=== PATIENT | female | born 1955 | race Caucasian/White ===

== ENCOUNTER → 2017-07-01 | Outpatient (CLI) | payer BC, OTHER ==
[~2017-07-01] MED LIST: ACETAMINOPHEN650 M5 PO; ALPRAZOLAM 0.0.25 M1 PO; AMARYL4 MG PO; ASPIRIN325; CARVEDILOL12.5 MG PO; CARVEDILOL25 MG PO; COREG; CYCLOBENZAPRINE10 MG PO; DOXYCYCLINE 10100 MG PO; EFFEXOR XR150 MG PO; GLUCOPHAGE500 MG PO; HYDROCODONE-AP1 EA10; HYDROCODONE-AP1 EA10 PO; JANUVIA 50 MG T50 M1; JANUVIA100 MG PO; K-DUR10 MEQ PO; LANOXIN 0.120.125 M1 PO; LANOXIN 0.250.25 MG PO; LASIX 20 MG TAB20 MG PO; LIPITOR20 MG PO; LISINOPRIL10 MG PO; LISINOPRIL20 MG PO; OMEPRAZOLE20 MG PO; POTASSIUM CHLO20 ME1 PO; SEROQUEL XR150 MG PO; STOOL SOFTENER1 EAC1 PO; TRILIPIX135 MG PO; VENLAFAXINE HC150 M1 PO; ZOCOR 20 MG TAB20 M1 PO; [UNRECOGNIZED DRUG - OTHER]
--- NOTE | ~2017-07-01 | 2DMMODE ---
[facility] [address] [place] [address] 2 D/M-MODE ECHOCARDIOGRAM Name: JANEDAVID Room #: REG [facility]#: [id number] Admission: 07/01/17 Attend Phys: Abimael Walton Discharge: Date of : 57 Date of Service: 07/01/17 1507 Report #: [id number] THIS REPORT FOR: //name// APPROVED REPORT Study performed: 07/01/2017 13:05:57 EXAM: Comprehensive 2D, Doppler, and color-flow Echocardiogram Patient Location: Out-Patient Room #: Echo lab Status: routine BSA: 2.08 HR: 80 bpm BP: 106/73 mmHg Other Information Study Quality: Good Indications Cardiomyopathy Hypertension/HDD ICD, HLP. 2D Dimensions RVDd: 38.51 mm LVEF(%): 34.99 (>50%) IVSd: 9.30 (7-11mm) LVOT Diam: 20.94 (18-24mm) LVDd: 59.28 mm PWd: 9.30 (7-11mm) Ascending Ao: 33.92 (22-36mm) LVDs: 49.19 (25-40mm) Aortic Root: 30.49 mm IVC: 19.00 mm Fleming's LVEF: 34.99 % Volumes Left Atrial Volume (Systole) Single Plane 4CH: 96.17 mL Single Plane 2CH: 131.88 mL LA ESV Index: 60.00 mL/m2 Aortic Valve AoV Peak Long.: 1.67 m/s AO Peak Gr.: 11.22 mmHg LVOT Max P.17 mmHg LVOT Max V: 1.02 m/s NARDA Vmax: 2.10 cm2 Mitral Valve E/A Ratio: 0.8 [facility] [employer] [place] [address] 2 D/M-MODE ECHOCARDIOGRAM Name: DAVID JANE Room #: REG [facility]#: [id number] Admission: 07/01/17 Attend Phys: Abimael Walton Discharge: Date of : 57 Date of Service: 07/01/17 1507 Report #: [id number] MV Decel. Time: 209.28 ms MV E Max Long.: 1.19 m/s MV A Long.: 1.47 m/s MV PHT: 60.69 ms IVRT: 152.25 ms Pulmonary Valve PV Peak Long.: 0.98 m/s PV Peak Gr.: 3.86 mmHg Pulmonary Vein P Vein S: 0.44 m/s P Vein A: 0.33 m/s P Vein D: 0.32 m/s P Vein A Dur.: 92.3 msec P Vein S/D Ratio: 1.38 Tricuspid Valve TR Peak Long.: 2.26 m/s RAP Estimate: 5.00 mmHg TR Peak Gr.: 20.50 mmHg PA Pressure: 26.00 mmHg Left Ventricle Left ventricle is dilated. There is normal left ventricular wall thickness. Left ventricular ejection fraction is moderate to severely decreased. LVEF is 30-35%. Grade I - abnormal relaxation pattern. Right Ventricle The right ventricle is normal size. The right ventricular systolic function is normal. Device lead is present in the right ventricle. Atria Left atrium is dilated. Right atrium is dilated. Device lead is present in the right atrium. Aortic Valve The aortic valve is normal in structure. Aortic valve is calcified. Trace aortic regurgitation. There is no aortic valvular stenosis. Mitral Valve The mitral valve is normal in structure. Mitral valve leaflets are calcified. Mitral valve repair with a [address] Mild to moderate mitral regurgitation. No evidence of mitral valve stenosis. Tricuspid Valve The tricuspid valve is normal in structure. There is no tricuspid [address] [address] 2 D/M-MODE ECHOCARDIOGRAM Name: DAVID JANE Room #: REG [facility]#: [id number] Admission: 07/01/17 Attend Phys: Abimael Walton Discharge: Date of : 57 Date of Service: 07/01/17 1507 Report #: [id number] valve stenosis. Trace tricuspid regurgitation. Pulmonic Valve The pulmonary valve is normal in structure. Trace pulmonic regurgitation. Great Vessels The aortic root is normal in size. IVC is normal in size and collapses >50% with inspiration. Pericardium There is no pericardial effusion. <Conclusion> Left ventricle is dilated. Left ventricular ejection fraction is moderate to severely decreased. LVEF is 30-35%. The right ventricle is normal size. Device lead is present in the right ventricle. Left atrium is dilated. Right atrium is dilated. Device lead is present in the right atrium. The aortic valve is normal in structure. Aortic valve is calcified. Trace aortic regurgitation. There is no aortic valvular stenosis. The mitral valve is normal in structure. Mitral valve leaflets are calcified. Mild to moderate mitral regurgitation. Mitral valve repair with a [address] The tricuspid valve is normal in structure. Trace tricuspid regurgitation. The pulmonary valve is normal in structure. Trace pulmonic regurgitation. <ELECTRONICALLY SIGNED> By: Abimael Song MD 07/01/17 1507 1507 1507 Abimael Song MD /INF
== END ==
LOC: EDSTATUS 12:27 → CV 12:38
DX: I10 Essential (primary) hypertension (principal); I42.9 Cardiomyopathy, unspecified; I34.0 Nonrheumatic mitral (valve) insufficiency

== ENCOUNTER → 2018-07-19 | Outpatient (CLI) | payer BC, OTHER ==
[~2018-07-19] VITALS: Ht 157.5 cm; Wt 121.6 kg
[~2018-07-19] MED LIST changes: +ENTRESTO 49 MG1 EACH PO; +MOBIC15 MG PO; +MOVANTIK25 MG PO; +MYRBETRIQ25 MG PO; +NORCO 10-325 T1 EACH PO; +SPIRONOLACTONE25 MG PO; +TRIAMCINOLONE 080 G3 TOP; +VOLTAREN GEL 1100 G2 TOP; +ZANTAC 150MG T150 MG PO
--- NOTE | ~2018-07-19 | CATHLAB ---
[facility] [place] [place] [address] INVASIVE PROCEDURE REPORT Name: DAVID JANE Room #: REG [facility]#: [id number] Admission: 07/19/18 Attend Phys: Abimael Walton Discharge: Date of : 57 Date of Service: 07/22/18 1314 Report #: [id number] THIS REPORT FOR: //name// APPROVED REPORT Study performed: 07/19/2018 14:16:32 Patient Status: Out-Patient Room #: Event Personnel: Abimael Song Motor Grader Rough Grade, Nuria Albert, Rena Allen RTR, Isidra Cheng Wes RN, Tip Harkins RN Resident Athletic Trainer Exam: Generator Change for a Bi-Ventricular Permanent Pacemaker The patient is a 62 year-old female with a history of . Conscious Sedation Start time: 14:40 End Time: 16:10 Versed 3 mg Implanted Devices: Biotronik Itrevia 7 HF-7; Ref. [id number]; SN: [id number] Explanted Devices: Lumax 540 HFT; SN: [id number] Procedure The patient underwent informed consent. We discussed the details of the procedure including the risks, which include, but not limited to bleeding, infection, vascular damage, cardiac perforation, and pneumothorax. She understood these risks and was willing to proceed. As such, she was brought to the EP/Cardiac Catheterization laboratory in a fasting and sedated state and prepped and draped in a The patient underwent MAC anesthesia, with no anesthesia related complications. Generator Change The generator change was then secured using subcutaneous sutures. The subcutaneous pocket was irrigated with ancef antibiotic solution.The lead was attached to the appropriate receptacle on the new pulse generator and setscrews firmly tightened to insure adequate contact and stability. The lead and pulse generator were placed into the subcutaneous pocket. Sharp and sponge counts were confirmed to be correct. At this time the pocket was closed subcutaneously with a 2-0 nonabsorbable suture and the skin was closed with a 3.0 Vicryl subcuticular. The [address] [address] INVASIVE PROCEDURE REPORT Name: JANEDAVID Room #: REG [facility]#: [id number] Admission: 07/19/18 Attend Phys: Abimael Walton Discharge: Date of : 57 Date of Service: 07/22/18 1314 Report #: [id number] operative site was dressed in sterile fashion with steri strips and the patient was transferred to the floor in stable condition. Complications The patient tolerated the procedure well and there were no complications associated with the procedure. Findings Estimated Blood Loss: 10 cc Conclusion 1. Successful BiV generator change Recommendations routine post generator change orders <ELECTRONICALLY SIGNED> By: Abimael Song MD 07/22/18 1314 1314 1314 Abimael Song MD /INF
[2018-07-19 12:51] VITALS: BP 144/84
== END | disposition home or self-care (01) ==
LOC: CATH 10:51
DX: Z45.02 Encounter for adjustment and management of automatic implantable cardiac defibrillator (principal); I11.0 Hypertensive heart disease with heart failure; I50.9 Heart failure, unspecified; I25.2 Old myocardial infarction; I42.9 Cardiomyopathy, unspecified; E78.00 Pure hypercholesterolemia, unspecified; E11.9 Type 2 diabetes mellitus without complications; D64.9 Anemia, unspecified; K21.9 Gastro-esophageal reflux disease without esophagitis; F32.9 Major depressive disorder, single episode, unspecified; F41.9 Anxiety disorder, unspecified; G47.33 Obstructive sleep apnea (adult) (pediatric); M79.7 Fibromyalgia; E66.01 Morbid (severe) obesity due to excess calories; Z82.49 Family history of ischemic heart disease and other diseases of the circulatory system; Z95.5 Presence of coronary angioplasty implant and graft; Z79.01 Long term (current) use of anticoagulants; Z95.2 Presence of prosthetic heart valve; Z98.890 Other specified postprocedural states; Z79.899 Other long term (current) drug therapy; Z90.710 Acquired absence of both cervix and uterus

== ENCOUNTER 2019-02-14 15:56 | Inpatient (IN) | payer BC, OTHER ==
[~2019-02-14] VITALS: Ht 157.5 cm; Wt 103.3 kg
[2019-02-14 20:00] VITALS: BP 104/47; BP 122/48
[2019-02-14 22:00] VITALS: BP 115/82
[2019-02-14] MEDS ORDERED: COREG25 MG PO (23:19)
[2019-02-14] MEDS ORDERED: LASIX 40 MG TAB40 M2 PO (23:21)
[2019-02-14] MEDS ORDERED: ENTRESTO 24 MG1 EACH PO (23:25)
[2019-02-14] MEDS ORDERED: SPIRONOLACTONE25 M1 PO (23:26)
[2019-02-14] MEDS ORDERED: AZATHIOPRINE50 MG PO (23:28)
[2019-02-14] MEDS ORDERED: EFFEXOR XR75 MG PO (23:29)
[2019-02-15] VITALS (9 sets, daily range): BP systolic 87–124; BP diastolic 40–88
[2019-02-15] MEDS ORDERED: OMEPRAZOLE20 M2 PO ×2 (00:43)
--- NOTE | 2019-02-15 03:00 | NUR ---
PT ADMITED AT SHIFT CHANGE, DIRECT ADMIT FROM JORDAN. AFIB HR 130'S - CARDIZEM BOLUS AND DRIP TITIRATED PER EMAR. PT DENIES CP, SOA, DIZZINESS OR CONCERNS. BP LOW 100'S SYSTOLIC ASYPMPTOMATIC. RA- CLEAR/WHEEZY 95% 02. PT STATES SHE USES A WALKER OR CANE BUT IS WEAK AND UNSTEADY AT HOME. ADMISSION COMPLETE, MED RECONCIL DONE. DAYNA SHOEMAKER SAW PATIENT THIS SHIFT. PT USES BRIEFS AT HOME, IN PLACE GOOD OUTPUT . PLAN FOR VQ SCAN AND LABS THIS AM. WILL CONTINUE TO MONITOR AND WITH POC.
[2019-02-15 04:55] LABS: HEMOGLOBIN 10.8 gm/dL (12.0-15.0); MCH 30.2 pg (26.0-34.0); MCV 86.5 fL (80.0-100.0); RBC 3.58 mil/uL (4.20-5.00); RDW 14.7 % (10.5-14.5); WBC 6.5 thou/uL (4.0-11.0)
[2019-02-15 05:04] LABS: CALCIUM 9.7 mg/dL (8.5-10.1); CREATININE 1.5 mg/dL (0.6-1.0)
--- NOTE | 2019-02-15 07:43 | EKG ---
[address] [place] [address] ELECTROCARDIOGRAM REPORT Name: DAVID JANE Room #: 204- ADM IN M.R.#: [id number] ������������������ Admission: 02/14/19 ������������������ Attend Phys: David Krishna MD Discharge: ������������������ Date of : 57 Report #: [id number] ����������������������������������������������������������������� [id number] THIS REPORT FOR: //name// [facility] Test Date: 2019-02-14 Test Time: 19:00:12 Pat Name: DAVID JANE Department: Room: 204 Gender: F Cane Cutter: Abraham PARKER : 1955 Requested By: David Krishna Order Number: [id number] MD: Luis Daniel Hahn Measurements Intervals [place] Rate: 139 P: 0 IL: QRS: 75 QRSD: 103 T: -86 QT: 325 QTc: 494 Interpretive Statements Probable atrial flutter with 2:1 conduction Ventricular premature complex Anteroseptal infarct, old Repol abnrm suggests ischemia, diffuse leads Baseline wander in lead(s) II,III,aVF Compared to ECG 11/22/2010 07:16:02 Ventricular premature complex(es) now present heart rate has increased Electronically Signed On 02-15-2019 7:43:17 CDT by Luis Daniel Hahn [email or web address] ��������������������������������������������� <ELECTRONICALLY SIGNED> ���������������������������������������� By: Luis Daniel Hahn MD, FAC ��������������������������������������������� 02/15/19 0743 99 99 Luis Daniel Hahn MD, [facility] /EPI
--- NOTE | 2019-02-15 15:17 | 2DMMODE ---
[facility] [address] [place] [address] 2 D/M-MODE ECHOCARDIOGRAM Name: JANEDAVID Room #: 204-P ADM IN M.R.#: [id number] ������������� Admission: 02/14/19 ������������� Attend Phys: Mandy Joseph Discharge: ��� ������������� ��� Date of : 57 Date of Service: 02/15/19 1517 �� Report #: [id number] �������� ��������������������������������������������[id number] THIS REPORT FOR: //name// APPROVED REPORT Study performed: 02/15/2019 14:12:56 EXAM: Comprehensive 2D, Doppler, and color-flow Echocardiogram Patient Location: Bedside Room #: 204 Status: routine BSA: 2.03 HR: 113 bpm BP: 100/72 mmHg Rhythm: Atrial Fibrillation Other Information Study Quality: Good Indications Atrial Fibrillation Dyspnea Hx: NISCM, ICD, CHF, MV repair, HTN, HLP. 2D Dimensions RVDd: 40.98 mm IVSd: 9.39 (7-11mm) LVOT Diam: 19.51 (18-24mm) LVDd: 67.00 mm PWd: 11.07 (7-11mm) Ascending Ao: 30.63 (22-36mm) LVDs: 62.07 (25-40mm) Aortic Root: 31.20 mm Volumes Left Atrial Volume (Systole) Single Plane 4CH: 71.35 mL Single Plane 2CH: 97.53 mL LA ESV Index: 44.00 mL/m2 Aortic Valve AoV Peak Long.: 1.30 m/s AO Peak Gr.: 14.97 mmHg LVOT Max P.72 mmHg LVOT Max V: 0.61 m/s NARDA Vmax: 1.40 cm2 Mitral Valve MV Peak Gr.: 12.48 mmHg [facility] [address] [place] [address] 2 D/M-MODE ECHOCARDIOGRAM Name: LUCINDADAVID CHRYSTAL Room #: [facility] IN ..#: [id number] ������������� Admission: 02/14/19 ������������� Attend Phys: Mandy Joseph Discharge: ��� ������������� ��� Date of : 57 Date of Service: 02/15/19 1517 �� Report #: [id number] �������� ��������������������������������������������[id number] MV Mean Gr.: 5.04 mmHg MV Max Long.: 1.75 m/s MV Mean Long.: 1.02 m/s MV VTI: 270.32 mm MV PHT: 48.79 ms MVA (PHT): 4.51 cm2 Pulmonary Valve PV Peak Long.: 0.81 m/s PV Peak Gr.: 2.92 mmHg Tricuspid Valve TR Peak Long.: 2.00 m/s RAP Estimate: 10.00 mmHg TR Peak Gr.: 16.00 mmHg PA Pressure: 26.00 mmHg Left Ventricle Left ventricle is moderate to severely dilated. There is global hypokinesis of the left ventricle. There is normal left ventricular wall thickness. Left ventricular systolic function is severely decreased. LVEF is 20-25%. This study is not technically sufficient to allow evaluation of the LV diastolic function due to atrial fibrillation. Right Ventricle The right ventricle is normal size. Right ventricle is moderately hypokinetic. Device lead is present in the right ventricle. Atria Left atrium is moderately dilated. Right atrium is at the upper limits of normal. Aortic Valve Aortic valve leaflets are mildly calcified Trace to mild aortic regurgitation. Mitral Valve History of mitral valve repair, 32mm ring placement. Mean pressure gradient of 5mmHg. Mild to moderate mitral regurgitation. Tricuspid Valve The tricuspid valve is normal in structure. Mild tricuspid regurgitation. Estimated PAP is 26mmHg. Pulmonic Valve Pulmonic valve is not well visualized. Trace pulmonic regurgitation. [facility] [address] [place] [address] 2 D/M-MODE ECHOCARDIOGRAM Name: LUCINDADAVID CHRYSTAL Room #: 204-P [facility] IN .R.#: [id number] ������������� Admission: 02/14/19 ������������� Attend Phys: Mandy Joseph Discharge: ��� ������������� ��� Date of : 57 Date of Service: 02/15/19 1517 �� Report #: [id number] �������� ��������������������������������������������[id number] Great Vessels The aortic root is normal in size. The ascending aorta is normal in size. IVC is normal in size and collapses <50% with inspiration. Pericardium There is no pericardial effusion. <Conclusion> Left ventricular systolic function is severely decreased. There is global hypokinesis of the left ventricle. LVEF 20-25%. Both atria are moderately dilated. Aortic valve leaflets are mildly calcified, no stenosis. Trace to mild aortic regurgitation. History of mitral valve repair, 32mm ring placement. Mean pressure gradient of 5mmHg. Mild to moderate mitral regurgitation. Mild tricuspid regurgitation. Estimated pulmonary artery pressure of 26mmHg. There is no pericardial effusion. ��������������������������������������������� <ELECTRONICALLY SIGNED> ���������������������������������������� By: Luis Daniel Hahn MD, FACC ��������������������������������������������� 02/15/19 151 16 16 Luis Daniel Hahn MD, FACC /INF
--- NOTE | 2019-02-15 19:02 | NUR ---
ASSESSMENT DOCUMENTED. PT ALERT AND ORIENTED. RECEIVED PRN PAIN MED WITH PARTIAL RELIEF. AFIB ON THE MONITOR. ORDERS NOTED. WILL CONTINUE TO MONITOR.
[2019-02-15 22:03] LABS: URINE BILIRUBIN NEGATIVE (Negative); URINE BLOOD NEGATIVE (Negative); URINE CLARITY SL CLOUDY; URINE COLOR YELLOW; URINE GLUCOSE-RANDOM* NEGATIVE (Negative); URINE KETONES NEGATIVE (Negative); URINE PROTEIN (DIPSTICK) NEGATIVE (Negative); URINE SPECIFIC GRAVITY 1.015 (1.005-1.035); URINE UROBILINOGEN 0.2 E.U./dl (0.2-1.0)
[2019-02-15 22:07] LABS: URINE LEUKOCYTES-REFLEX 1+ (Negative); URINE NITRITE-REFLEX POSITIVE (Negative)
[2019-02-15 22:14] LABS: MUCUS 0-3 Light strn/LPF (None Seen); SQUAMOUS 0-3 Few /LPF (0-3); URINE RBC 3-10 Few /HPF (0-2); URINE WBC-REFLEX 6-15 Few /HPF (0-5)
[2019-02-15 22:15] LABS: HYALINE CASTS 4-10 Moderate /LPF (None Seen)
--- NOTE | 2019-02-16 02:50 | NUR ---
ASSUMED CARE 0. VSS- AFIB 90-110 ON MONITOR. ASSESSMENT CHARTED. PT DENIES SOA, CP, NAUSEA. BP WNL. UP TO COMMOD X1 ASSIST, UA COLLECTED SEE LABS. POTASSIUM AND MAG LOW, GROUNDS/MAINTENANCE SPECIALIST NOTIFIED, ORDERS GIVEN. MAG AND POT REPLACED PER EMAR, PLAN FOR LABS THIS AM. EX URINARY CATH IN PLACE. AM SHIFT REPORTED STRESS TEST WILL BE DONE THURSDAY. WILL CONTINUE TO MONITOR AND WITH POC.
[2019-02-16 04:27] LABS: CALCIUM 9.4 mg/dL (8.5-10.1); CREATININE 1.7 mg/dL (0.6-1.0); MAGNESIUM 1.5 mg/dL (1.8-2.4)
[2019-02-16 04:34] LABS: POTASSIUM 4.2 mmol/L (3.5-5.1)
[2019-02-16 04:45] VITALS: BP 116/56
[2019-02-16 07:16] VITALS: BP 106/51
--- NOTE | 2019-02-16 10:51 | NUR ---
Nutrition: Pt admitted for SOB, seen for high nutrition risk. Hx of CHF, htn. States gradual wt loss of 40 lbs, 15% x5 months, significant. However intake is 50% with 2 boosts/day. Also on diuretics so could be partically fluid related. Requested Ensure BID, will order. Will also provide wt loss education. Otherwise low nutrition risk.
[2019-02-16 11:12] VITALS: BP 110/52
--- NOTE | 2019-02-16 11:20 | H ---
[facility] [place] [address] [place] [address] HISTORY AND PHYSICAL Name: DAVID JANE Room #: 204-P ADM IN M.R.#: [id number] Admission: 02/14/19 ������������������ Attend Phys: Mandy Duff Discharge: ������������������ Date of : 57 Report #: [id number] THIS REPORT FOR: //name// CC: Hernan Krishna DATE OF SERVICE: 02/14/2019 ATTENDING PHYSICIAN: Dr. Guevara. PRIMARY CARE PHYSICIAN: Dr. Hernan Polk. CHIEF COMPLAINT: Shortness of breath and chest heaviness. HISTORY OF PRESENT ILLNESS: The patient is a 63-year-old female, who was sent as a direct admission from [facility] for atrial fibrillation with rapid ventricular response. She does have a history of atrial fibrillation, for which she takes carvedilol. She also has nonischemic cardiomyopathy with an EF of 30%-35% and has a defibrillator in place. She did have a generator exchange last year. Her symptoms started about a week ago when she started having intermittent shortness of breath and some chest heaviness. Her shortness of breath was somewhat worse with exertion, but she would also have episodes when she was at rest. She denies any orthopnea or weight gain. She went to her primary doctor today and her heart rate was fast, so she was sent to the ER to be evaluated. She did have an elevated heart rate and was sent here for further evaluation by her paper rewinder. Her paper rewinder apparently had been notified that her AICD did show an elevated heart rate episode that lasted about 5 hours three days ago. She did recall back around that time and said she was feeling very short of breath that day. She has Lasix as she normally takes p.r.n., but she has been taking it all week because of her symptoms. She denies any history of DVT or PE and does not take any blood thinners including aspirin. In the ER at [facility], she was noted to have an elevated D-dimer, but she was unable to have a CT angio of the chest because of elevated creatinine as well as a CONTRAST ALLERGY. Therefore, she was given a dose of Lovenox, as well as IV Lasix prior to transfer. She has been diuresing well and says her breathing seems to have improved. On arrival here, her initial heart rate was 130 and she has since been started on a Cardizem drip. She normally does not wear oxygen and denies any history of pulmonary disease. PAST MEDICAL HISTORY: Nonischemic cardiomyopathy with an EF of 30%-35%, atrial fibrillation, depression, hypertension, chronic kidney disease stage 3, fibromyalgia, anxiety, myasthenia gravis. PAST SURGICAL HISTORY: AICD placement, mitral valve repair, hysterectomy, bilateral knee replacements, and an AICD generator exchange in 2018. [address] [address] HISTORY AND PHYSICAL Name: DAVID JANE Room #: 204-P ADM IN M.R.#: [id number] Admission: 02/14/19 ������������������ Attend Phys: Mandy Duff Discharge: ������������������ Date of : 57 Report #: [id number] ALLERGIES: SULFA, RASH; IV DYE, UNKNOWN REACTION; BENADRYL, SLEEPS FOR DAYS; and CODEINE, EITHER SLEEPS OR GETS HIGH. HOME MEDICATIONS: Atorvastatin 20 mg at bedtime, carvedilol 25 mg b.i.d., Entresto one tab daily, spironolactone 25 mg daily, [place] one tab q.6 hours p.r.n. pain, Effexor 300 mg daily, Lasix 40 mg daily p.r.n. shortness of air, omeprazole 20 mg at bedtime, Movantik 25 mg daily, and Imuran 50 mg b.i.d. SOCIAL HISTORY: The patient lives at home with her spouse and her son. She denies any tobacco, alcohol or drug use. She does use a walker to ambulate. FAMILY HISTORY: Significant for heart disease in her father and brother. Her father ended up dying from lung cancer. Her mother had renal disease. She also had a sister who required a mitral valve replacement. REVIEW OF SYSTEMS: The patient does describe some chronic right christian erythema that she has had ever since she had her right knee replaced. She had a postoperative knee infection when the wound opened up and ever since then she has had erythema in the right lower extremity with some tenderness. She has been treated with antibiotics a few times, but it did not resolve the redness. The redness has not been increasing and she denies any open wounds or fevers. All other 12-point review of systems was reviewed with the patient, otherwise negative unless stated in the HPI. PHYSICAL EXAMINATION: GENERAL: The patient is an alert, obese female, in no acute distress. VITAL SIGNS: Temperature is 36.9, heart rate 136, respirations 18, blood pressure 104/47, oxygen 96% on 2 liters O2. HEENT: PERRLA. Sclerae is nonicteric. Oral mucosa is pink and moist. NECK: Supple, no JVD noted. CARDIAC: Heart rate is tachycardic and irregular, but no murmurs, rubs or gallops. RESPIRATORY: Breath sounds are clear bilaterally. She is somewhat diminished in the bases. Breathing is nonlabored. ABDOMEN: Obese, soft, nontender, nondistended with positive bowel sounds. VASCULAR: 1+ bilateral ankle edema. Pedal pulses are 2+. SKIN: Intact. She does have some very mild erythema on her right christian, but there are no warmth or open wounds. It is slightly tender to touch. NEUROLOGIC: The patient is alert and oriented x 3. Speech is clear. She is answering questions appropriately and following commands. No focal neuro deficits noted. LABORATORY AND DIAGNOSTIC DATA: Lab work from [facility] showed a WBC of 7.6, hemoglobin 11.6, platelets 229. Sodium 140, potassium 3.6, BUN 38, creatinine [address] [address] HISTORY AND PHYSICAL Name: LUCINDADAVID CHRYSTAL Room #: 204-P [facility] IN M.R.#: [id number] Admission: 02/14/19 ������������������ Attend Phys: Mandy Duff Discharge: ������������������ Date of : 57 Report #: [id number] 1.5, glucose 133. LFTs were within normal limits. Troponins negative. BNP is 5500. D-dimer was 1444. EKG showed an atrial sensed V paced rhythm of 109. Chest x-ray showed no acute findings. There was stable cardiomegaly. ASSESSMENT AND PLAN: 1. Dyspnea. This is likely multifactorial related to atrial fibrillation with rapid ventricular response as well as mild congestive heart failure exacerbation and possible pulmonary embolism. We will continue to work on heart rate control with Cardizem and further tests for pulmonary embolism. She has been given a dose of IV Lasix and has been diuresing well and breathing is improving. Add breathing treatments p.r.n. 2. Atrial fibrillation with rapid ventricular response. It does appear that her defibrillator is not working properly. This will likely need to be interrogated. We will continue with the Cardizem drip and titrate for rate control. Cardiology is consulted. 3. Elevated D-dimer. We do need to rule out pulmonary embolism. Unfortunately, she is unable to have a CT angio of the chest because of a CONTRAST ALLERGY and elevated creatinine. We will order a V/Q scan for morning. She has empirically been started on therapeutic dose of Lovenox, which we will continue. 4. Mild uzhqn-nk-auegomg heart failure. BNP is elevated, but chest x-ray did not show any acute fluid overload. She was given a dose of IV Lasix at [facility]. We will continue her home dose of oral Lasix and continue to monitor fluid status. 5. Hypertension. Blood pressures have been stable. Resume home meds and resume home labs. 6. Chronic kidney disease stage 3. Creatinine was 1.1 in 2012. We do not have any recent labs, but chronic kidney disease stage 3 was mentioned in her [facility] records. We will hold off on any IV fluids since she has congestive heart failure and has been diuresing. We will continue to follow labs. 7. Deep venous thrombosis prophylaxis. Start Lovenox. We will continue to follow the patient closely throughout the hospitalization and make changes based on clinical status. ��������������������������������������������� <ELECTRONICALLY SIGNED> ���������������������������������������� By: SRIKANTH Nuno ��������������������������������������������� 02/16/19 1120 0511 0622 SRIKANTH Nuno /nt
--- NOTE | 2019-02-16 14:41 | NUR ---
met with patient who admits with CHF exacerbation. Patient resides at home with spouse and son. Both work during day. Patient home alone until approx 1430 when son home. All needs on one level in home and 3-4 steps to enter home. Patient has a walker. Discussed dc planning HH/post acute care. Patient with hx of ankle fx then need for post acute care. She was at [facility] for many weeks and reports she would never return. Reviewed facilities and patient reports possibly HH a better fit for her. She is agreeable to any HH agency in area and not alarmed she is a hoarder. She has safe pathway to safety. SP with dc corporate meeting planner regarding HH agencies in area. casemgt following.
[2019-02-16 15:45] VITALS: BP 96/49
--- NOTE | 2019-02-16 17:49 | NUR ---
ASSESSMENT DOCUMENTED. PT DENIED HAVING PAIN OR DISCOMFORT. HAD LOW BP THIS SHIFT. AFIB ON THE MONITOR. UP IN THE CHAIR THIS AM. CARDIAC STRESS TEST IN AM. NPO AFTER MIDNIGHT. WILL CONTINUE TO MONITOR.
[2019-02-16 19:55] VITALS: BP 97/54
--- NOTE | 2019-02-17 03:16 | NUR ---
RECEIVED PT'S CARE ABOUT 1909; PT. REQUESTED TO BE CHANGED; PRIVACY GIVEN; REPORT RECEIVED OUTSIDE OF ROOM; INTRODUCED TO PT. AROUND 1939; PT. EXPLAINED PCP ST. TO TAKE TAKE MUCIMEX FOR HER COUGH; BOTTLE NEXT TO WINDOW; EXPLAINED PER HOSPITAL POLICY WHILE IN THE HOSPITAL, MEDICATION CAN BE PROVIDED DUE TO IT IS NECESSARY TO KNOW WHEN AND HOW MUCH PT'S TAKE; ALSO, FOR SAFETY REASONS, IT IS IMPORTANT PHARMACY APROVED MEDICATION BEFORE IT IS GIVEN TO PT.; PT. UPSET BECAUSE THE MEDICATION'S COST IS HIGHER IN THE HOSPITAL THAN IN REGULAR BASIS; ST. "I CANNOT UNDERSTAND WHY WE PTS CANNOT BRING OUR OWN MEDICATION"; "SOMEBODY SHOULD AVOCATE FOR PTS"; EXPLAINED THOSE ARE REGULAR POLOCIES; ST "NURSES SHOULD AVOCATED FOR PTS, SO THEY DO NOT PAY SO MUCH FOR MEDICATION WHEN THEY CAN TAKE THEIR OWN MEDICATION"; EXPLAINED THAT I CAN REQUESTED ORDER FROM HISTORICAL GUIDE; ASKED IF WISHED TO HAVE IT; ST. "YES"; HISTORICAL GUIDE NOTIFIED; ORDERS RECEIVED; HS MEDICATION GIVEN; AROUND 0; PT REQUESTED PRN PAIN MEDICATION; PRN PAIN MEDICATION GIVEN; PAIN RE-ASSESSMENT PT. SLEEPING; ABLE TO REST MOST OF THE NIGHT WITH EYES CLOSE; BETWEEN 0100 AND 0200 PT'S HR INCREASING UP TO 130'S; NOT SUSTAINED; HR MOSTLY BELOW 100; ASSESSMENT CHARGED; FOLLOWING POC; WILL KEEP MONITORING; WILL PASS ON REPORT.
[2019-02-17 04:45] VITALS: BP 92/60
[2019-02-17 07:28] VITALS: BP 95/43
[2019-02-17 15:38] VITALS: BP 90/66
--- NOTE | 2019-02-17 15:46 | NUR ---
FAXED REFERRAL TO LOCATED WITHIN [facility] SPOKE WITH ADM. DURAN AND THEY CAN ACCEPT PT. AT DISCHARGE. DCP TO FOLLOW.
--- NOTE | 2019-02-17 17:13 | NUR ---
ASSESSMENT DOCUMENTED. PT ALERT AND ORIENTED. RECEIVED PRN PAIN MED WITH PARTIAL RELIEF. HAD STRESS TEST THIS AM. AFIB ON THE MONITOR. NO RESPIRATOEY OR CARDIAC DISTRESS NOTED. WILL CONTINUE TO MONITOR.
[2019-02-17 19:55] VITALS: BP 96/53
[2019-02-17 20:10] VITALS: BP 96/53
--- NOTE | 2019-02-18 03:16 | NUR ---
RECEIVED PT. CARE AROUND 1909; PT. ON BED; WATCHING TV; DURING ASSESSMENT NO C/O PAIN; HS MEDICATION GIVEN; SBP BELOW 100; BASELINE FOR PT; EDUCATED ABOUT NEW HS MEDICATION; O2 SAT 92% ON RA; DURING SLEEPING 02 SATS BETWEEN 89%-90%; 2L O2 APPLIED ON NC; O2 SAT 93%; HR BETWEEN 30'S TO 70'S; NO C/O COMPLAINS DURING ASSESSMENT; WILL KEEP [id number]; ABLE TO REST M0ST OF THE NIGHT WITH EYES CLOSE; ASSESSMENT CHARGED; FOLLOWING POC; WILL PASS ON REPORT.
[2019-02-18 04:45] VITALS: BP 104/38
[2019-02-18 05:30] LABS: CALCIUM 9.8 mg/dL (8.5-10.1); CREATININE 1.7 mg/dL (0.6-1.0); POTASSIUM 4.1 mmol/L (3.5-5.1)
[2019-02-18 07:22] VITALS: BP 100/53
--- NOTE | 2019-02-18 08:23 | EKG ---
[address] [address] ELECTROCARDIOGRAM REPORT Name: LUCINDADAVIDRICKI JARRELL Room #: 204- ADM IN M.R.#: [id number] ������������������ Admission: 02/14/19 ������������������ Attend Phys: Mandy Duff Discharge: ������������������ Date of : 57 Report #: [id number] ����������������������������������������������������������������� [id number] THIS REPORT FOR: //name// [facility] Test Date: 2019-02-17 Test Time: 13:55:18 Pat Name: DAVID JANE Department: Room: 204 Gender: F Entry Level: Yordy LEO : 1955 Requested By: Lisbeth Grimaldo Order Number: [id number] MD: Luis Daniel Hahn Measurements Intervals [place] Rate: 131 P: [place]: QRS: 69 QRSD: 102 T: 260 QT: 305 QTc: 451 Interpretive Statements Atrial fibrillation with a rapid ventricular response Nonspecific intraventricular conduction delay Nonspecific ST and T wave abnormality Compared to ECG 02/14/2019 19:00:12 No significant change was found Electronically Signed On 02-18-2019 8:23:21 CDT by Luis Daniel Hahn [email or web address] ��������������������������������������������� <ELECTRONICALLY SIGNED> ���������������������������������������� By: Luis Daniel Hahn MD, [facility] ��������������������������������������������� 02/18/19 0823 1355 1355 Luis Daniel Hahn MD, [facility] /EPI
--- NOTE | 2019-02-18 08:36 | EKG ---
[place] [address] [facility] [place] [address] ELECTROCARDIOGRAM REPORT Name: LUCINDADAVID JARRELL Room #: 204-P ADM IN M.R.#: [id number] ������������������ Admission: 02/14/19 ������������������ Attend Phys: Mandy Duff Discharge: ������������������ Date of : 57 Report #: [id number] ����������������������������������������������������������������� [id number] THIS REPORT FOR: //name// [facility] Test Date: 2019-02-18 Test Time: 07:01:32 Pat Name: DAVID JANE Department: Room: 204 P Gender: F Last Inserter: SHAZIA : 1955 Requested By: Lisbeth Grimaldo Order Number: [id number] MD: Luis Daniel Hahn Measurements Intervals [place] Rate: 108 P: [place]: QRS: 54 QRSD: 102 T: 242 QT: 316 QTc: 424 Interpretive Statements Atrial flutter Probable LVH with secondary repol abnrm Compared to ECG 02/14/2019 19:00:12 Ventricular premature complex(es) no longer present Electronically Signed On 02-18-2019 8:36:14 CDT by Luis Daniel Hahn [email or web address] ��������������������������������������������� <ELECTRONICALLY SIGNED> ���������������������������������������� By: Luis Daniel Hahn MD, [facility] ��������������������������������������������� 02/18/19 0836 0 0 Luis Daniel Hahn MD, [facility] /EPI
[2019-02-18 11:24] VITALS: BP 108/82
--- NOTE | 2019-02-18 12:37 | NUR ---
DC not anticipated today. MARCELL CRAMER liason here to visit with the pt. They will need orders faxed at discharge as well as a phone call to confirm pt's dc home. MARCELL CRAMER: [phone], fax [phone]
[2019-02-18 12:41] VITALS: BP 97/60
[2019-02-18 16:00] VITALS: BP 101/51
--- NOTE | 2019-02-18 17:04 | NUR ---
ASSESSMENT DOCUMENTED. PT ALERT AND ORIENTED. RECEIVED PRN NAUSEA MED WITH PARTIAL RELIEF. DENIED HAVIMG PAIN. AFIB ON THE MONITOR. ORDERS NOTED. WILL CONTINUE TO MONITOR.
[2019-02-18 19:41] VITALS: BP 113/62
[2019-02-19 05:45] VITALS: BP 97/47
[2019-02-19 05:47] VITALS: BP 101/35
[2019-02-19 06:10] LABS: CALCIUM 9.9 mg/dL (8.5-10.1); CREATININE 2.3 mg/dL (0.6-1.0); POTASSIUM 4.2 mmol/L (3.5-5.1)
--- NOTE | 2019-02-19 07:50 | NUR ---
ASSUME CARE 1900. PT STABLE. BP RUNS SOFT AND HEART RATE JUMPS TO MID 100s. PT IS SOMETIMES PACED. DENIES ANY PAIN. ASYMPTOMATIC WITH TACHYCARDIC EPISODES. DENIES ANY PAIN. POOR TOLERANCE TO ACTIVITY. NEEDS MOTIVATION AND ENCOURAGEMENT TO DO ACTIVITY. ASSESSMENT CHARTED. PLAN IS TO CONTINUE TX AFIB WITH AMIODARONE AND POSSIBLE CARDIOVERSION ON THURSDAY. WILL CONTINUE TO MONITOR AND FOLLOW WITH POC
[2019-02-19 09:31] VITALS: BP 93/52
--- NOTE | 2019-02-19 10:30 | EKG ---
[place] [address] [facility] [place] [address] ELECTROCARDIOGRAM REPORT Name: DAVID JANE Room #: 204-P ADM IN M.R.#: [id number] ������������������ Admission: 02/14/19 ������������������ Attend Phys: Mandy Duff Discharge: ������������������ Date of : 57 Report #: [id number] ����������������������������������������������������������������� [id number] THIS REPORT FOR: //name// [facility] Test Date: 2019-02-19 Test Time: 06:18:01 Pat Name: DAVID JANE Department: Room: 204 Gender: F Independent Insurance Adjuster: MARIBEL : 1955 Requested By: Lisbeth Grimaldo Order Number: [id number] MD: Luis Daniel Hahn Measurements Intervals [place] Rate: 94 P: [place]: QRS: 59 QRSD: 105 T: -89 QT: 370 QTc: 463 Interpretive Statements Afib/flut and V-paced complexes No further rhythm analysis attempted due to paced rhythm Nonspecific repol abnormality, diffuse leads Compared to ECG 02/18/2019 07:01:32 no significant change was found Electronically Signed On 02-19-2019 10:29:43 CDT by Luis Daniel Hahn [email or web address] ��������������������������������������������� <ELECTRONICALLY SIGNED> ���������������������������������������� By: Luis Daniel Hahn MD, [facility] ��������������������������������������������� 02/19/19 1029 7 Luis Daniel Hahn MD, [facility] /EPI
[2019-02-19 12:00] VITALS: BP 95/49
[2019-02-19 16:00] VITALS: BP 115/39
--- NOTE | 2019-02-19 18:05 | NUR ---
PT RECEIVED PRN PAIN MED WITH PARTIAL RELIES. NO CARDIAC OR RESPIRATORY DISTRESS NOTED. HOME MED RESTARTED. NO CONCERNS AT THIS TIME. WILL CONTINUE TO MONITOR.
[2019-02-19 19:31] VITALS: BP 96/45
[2019-02-20 04:11] VITALS: BP 94/54
[2019-02-20 05:21] LABS: CALCIUM 9.9 mg/dL (8.5-10.1); CREATININE 2.4 mg/dL (0.6-1.0); POTASSIUM 4.2 mmol/L (3.5-5.1)
--- NOTE | 2019-02-20 05:26 | NUR ---
ASSUME CARE 1900. PT STABLE. BP RUNS SOFT AND PT HAS EPISODES OF TACHYCARDIA, BUT APPEARS STABLE. INTERMITTENT GENERALIZED PAIN NOTED. ADEQUATE REST NOTED. ASSESSMENT AAS CHARTED. PROGRESSING WITH POC. PLAN IS FOR PT TO HAVE A CARDIOVERSION ON THURSDAY. WILL CONTIUE TO MONITOR AND FOLLOW WITH POC
[2019-02-20 08:28] VITALS: BP 83/57
[2019-02-20 10:30] VITALS: BP 88/61
--- NOTE | 2019-02-20 11:57 | EKG ---
[place] [address] [place] [address] ELECTROCARDIOGRAM REPORT Name: DAVID JANE Room #: 204-P ADM IN M.R.#: [id number] ������������������ Admission: 02/14/19 ������������������ Attend Phys: Mandy Duff Discharge: ������������������ Date of : 57 Report #: [id number] ����������������������������������������������������������������� [id number] THIS REPORT FOR: //name// [facility] Test Date: 2019-02-20 Test Time: 07:46:32 Pat Name: DAVID JANE Department: Room: 204 P Gender: F Biomedical Engineering Supervisor: ROMAINE : 1955 Requested By: Lisbeth Grimaldo Order Number: [id number] MD: Luis Daniel Hahn Measurements Intervals [place] Rate: 128 P: 58 MD: 6 QRS: 69 QRSD: 105 T: -90 QT: 337 QTc: 492 Interpretive Statements Ventricular-paced complexes No further analysis attempted due to paced rhythm Compared to ECG 02/19/2019 06:18:01 ventricular pacing is more frequent Electronically Signed On 02-20-2019 11:56:53 CDT by Luis Daniel Hahn [email or web address] ��������������������������������������������� <ELECTRONICALLY SIGNED> ���������������������������������������� By: Luis Daniel Hahn MD, [facility] ��������������������������������������������� 02/20/19 1156 Luis Daniel Hahn MD, [facility] /EPI
[2019-02-20 15:18] VITALS: BP 124/54
--- NOTE | 2019-02-20 17:30 | NUR ---
PT ALERT AND ORIENTED. PRN PAIN MED GIVEN WITH PARTIAL RELIEF. UP IN THE CHAIR THIS AFTERNOON. ENCOURANGED TO WALK TO THE BATHROOM. SEEN BY DR DUARTE AND DR AMEZCUA. ORDERS NOTED. NPO AFTER MIDNIGHT FOR CARDIOVERSION IN AM. CONSENT IN THE CHART. PT WANTS TO SIGN THE CONSENT IN THE MORNING. AND THE BEDSIDE. WILL CONTINUE TO MONITOR.
[2019-02-20 19:55] VITALS: BP 112/88
[2019-02-21 04:45] VITALS: BP 102/80
[2019-02-21 05:20] LABS: HEMATOCRIT 33.4 % (37.0-47.0); HEMOGLOBIN 11.5 gm/dL (12.0-15.0); MCH 30.1 pg (26.0-34.0); MCHC 34.3 g/dL (28.0-37.0); RBC 3.8 mil/uL (4.20-5.00); RDW 14.8 % (10.5-14.5); WBC 5.8 thou/uL (4.0-11.0)
[2019-02-21 05:25] LABS: CALCIUM 9.9 mg/dL (8.5-10.1); CREATININE 2.2 mg/dL (0.6-1.0)
--- NOTE | 2019-02-21 05:57 | NUR ---
ASSUME CARE 1900. INTERMITTENT GENERALIZED PAIN. UP WITH STB ASSIST TO BSC. ADEQUATE REST NOTED. PROGRESSING WITH POC. PLAN IS TO POSSIBLY D/C PACER WIRES TODAY. INCISIONS WELL APPROXIMATRED/SOAP MIXER/ HEALING. WILL CONTINUE TO MONITOR AND FOLLOW WITH POC
[2019-02-21 07:20] VITALS: BP 105/84
--- NOTE | 2019-02-21 08:45 | EKG ---
[place] [address] [facility] [employer] [place] [address] ELECTROCARDIOGRAM REPORT Name: LUCINDADAVID JARRELL Room #: 204-P ADM IN M.R.#: [id number] ������������������ Admission: 02/14/19 ������������������ Attend Phys: Mandy Duff Discharge: ������������������ Date of : 57 Report #: [id number] ����������������������������������������������������������������� [id number] THIS REPORT FOR: //name// [facility] Test Date: 2019-02-21 Test Time: 06:54:59 Pat Name: DAVID JANE Department: Room: 204 P Gender: F Seam Press Operator: SHAZIA : 1955 Requested By: Lisbeth Grimaldo Order Number: [id number] MD: Luis Daniel Hahn Measurements Intervals [place] Rate: 87 P: [place]: QRS: 56 QRSD: 117 T: 256 QT: 351 QTc: 423 Interpretive Statements Atrial flutter with predominant 3:1 AV block Incomplete left bundle branch block Compared to ECG 02/20/2019 07:46:32 no significant change was found Electronically Signed On 02-21-2019 8:44:47 CDT by Luis Daniel Hahn [email or web address] ��������������������������������������������� <ELECTRONICALLY SIGNED> ���������������������������������������� By: Luis Daniel Hahn MD, [facility] ��������������������������������������������� 02/21/19 0844 0654 3 Luis Daniel Hahn MD, [facility] /EPI
--- NOTE | 2019-02-21 08:47 | NUR ---
Recovery monitoring. Pt resting responds to verbal commands. VSS, no s/sx of cardiac or resp distress. at bedside. NSR with paced beats. Will continue to monitor.
--- NOTE | 2019-02-21 09:04 | TEE ---
[facility] [address] [place] [address] TRANSESOPHAGEAL ECHOCARDIOGRAM Name: DAVID JANE CHRYSTAL Room #: 204-P ADM IN M.R.#: [id number] ������������� Admission: 02/14/19 ������������� Attend Phys: Mandy Joseph Discharge: ��� ������������� ��� Date of : 57 Date of Service: 02/21/19 0904 �� Report #: [id number] �������� ��������������������������������������������[id number] THIS REPORT FOR: //name// APPROVED REPORT Study performed: 02/21/2019 08:07:41 EXAM: Comprehensive 2D, Doppler, and color-flow Echocardiogram Patient Location: [facility] Room #: 204 Status: routine BSA: 2.02 HR: 122 bpm BP: 105/84 mmHg Rhythm: Atrial Flutter Other Information Study Quality: Good Indications Cardioversion Procedure After obtaining informed consent, patient underwent transesophageal echo in the [employer]. Type of Sedation : Conscious Sedation Sedation was administered by Tish Hernandez RN. Sedation was achieved intravenously with: Versed (5) Fentanyl (50) Transesophageal probe was inserted and advanced into esophagus without difficulty by Luis Daniel Hahn MD. The SANDRA was performed without complications. Synchronized Cardioversion attempted: Successful Synchronized Cardioversion acheived with 20 Joules after 1 attempt(s). Rhythm following Synchronized Cardioversion: Paced Rhythm Throughout the procedure, the blood pressure, pulse oximetry, cardiac rhythm, and rate were monitored. The patient tolerated the procedure without adverse effects. Recovery from conscious sedation was uneventful and vital signs were stable. Left Ventricle Left ventricle is dilated. There is normal left ventricular wall [facility] [address] [place] [address] TRANSESOPHAGEAL ECHOCARDIOGRAM Name: LUCINDADAVID CHRYSTAL Room #: 204-P [facility] IN M.R.#: [id number] ������������� Admission: 02/14/19 ������������� Attend Phys: Mandy Joseph Discharge: ��� ������������� ��� Date of : 57 Date of Service: 02/21/19 0904 �� Report #: [id number] �������� ��������������������������������������������[id number] thickness. Left ventricular systolic function is severely decreased. LVEF is 20-25%. Right Ventricle The right ventricle is normal size. Right ventricle is hypokinetic. Atria Left atrium is dilated. No thrombus is visualized in the left atrium or appendage. No shunting noted by contrast bubble injection. The right atrium size is normal. Device lead is present in the right atrium. Aortic Valve Aortic valve is trileaflet. Trace aortic regurgitation. There is no aortic valvular stenosis. Mitral Valve Changes consistent with MV repair, 32mm ring placement with adequate leaflet excursion. Mild mitral regurgitation. Tricuspid Valve The tricuspid valve is normal in structure. There is no tricuspid valve regurgitation noted. Pulmonic Valve The pulmonary valve is normal in structure. There is no pulmonic valvular regurgitation. Great Vessels The aortic root is normal in size. IVC is normal in size and collapses >50% with inspiration. Pericardium There is no pericardial effusion. <Conclusion> Left ventricular systolic function is severely decreased. LVEF is 20-25%. Left atrium is dilated. No thrombus is visualized in the left atrium or appendage. No shunting noted by contrast bubble injection. Aortic valve is trileaflet. Trace aortic regurgitation, no stenosis. Changes consistent with MV repair, 32mm ring placement with adequate leaflet excursion. [facility] [address] [place] [address] TRANSESOPHAGEAL ECHOCARDIOGRAM Name: DAVID JANE Room #: 204-P [facility] IN [facility].#: [id number] ������������� Admission: 02/14/19 ������������� Attend Phys: Mandy Joseph Discharge: ��� ������������� ��� Date of : 57 Date of Service: 02/21/19903 �� Report #: [id number] �������� ��������������������������������������������[id number] Mild mitral regurgitation. There is no pericardial effusion. Successful cardioversion of atrial flutter AV sequential biventricular pacing ��������������������������������������������� <ELECTRONICALLY SIGNED> ���������������������������������������� By: Luis Daniel Hahn MD, [facility] ��������������������������������������������� 02/21/19903 3 3 Luis Daniel Hahn MD, [facility] /INF
--- NOTE | 2019-02-21 09:04 | NUR ---
Recovery monitoring. Pt resting well and asked for warm blanket. VVS. No complaints voiced. No s/sx of cardiac or resp distress. NSR with paced beats. Pacemaker rep notified and will check device. Will continue to monitor.
[2019-02-21 11:08] VITALS: BP 103/47
[2019-02-21] MEDS ORDERED: ELIQUIS5 MG PO (11:22)
[2019-02-21] MEDS ORDERED: PACERONE 200 M200 M1 PO (11:23)
[2019-02-21] MEDS ORDERED: MAGNESIUM400 MG PO (11:26)
--- NOTE | 2019-02-21 15:07 | NUR ---
RECIEVED CARE AT 0700, AWAKE, ORIENTED X 4, NO COMPLAINTS. DOWN TO HAVE SANDRA AND CARDIOVERSION AT O730. BACK TO ROOM AT 1030 AFTER SUCCESSFUL CONVERSION. NOW VPACED IN 70'S. DR. DUARTE AT AND WILL DISCHARGE IF OKAY WITH CARDIOLOGY. WAITING FOR FINAL DISPOSITION. SATURATIONS MID TO HIGH 90'S ON 2LNC
== END 2019-02-21 17:18 | disposition home health service (06) | DRG 308 ==
LOC: 2N 15:56
PROVIDERS: Internal Medicine; Nurse Practitioner Acute Care; Nurse Practitioner Family; Nurse Practitioner Gerontology; ADMIT Hospitalist
PROC: B24BZZ4 Ultrasonography of Heart with Aorta, Transesophageal (ICD-10-PCS; principal; 2019-02-21)
PROC: 4B02XTZ Measurement of Cardiac Defibrillator, External Approach (ICD-10-PCS; principal; 2019-02-21)
DX: I48.91 Unspecified atrial fibrillation (principal); I50.23 Acute on chronic systolic (congestive) heart failure; I13.0 Hypertensive heart and chronic kidney disease with heart failure and stage 1 through stage 4 chronic kidney disease, or unspecified chronic kidney disease; Z68.41 Body mass index [BMI] 40.0-44.9, adult; N39.0 Urinary tract infection, site not specified; E87.3 Alkalosis; N17.9 Acute kidney failure, unspecified; I42.9 Cardiomyopathy, unspecified; F32.9 Major depressive disorder, single episode, unspecified; N18.3 Chronic kidney disease, stage 3 (moderate); B96.20 Unspecified Escherichia coli [E. coli] as the cause of diseases classified elsewhere; M79.7 Fibromyalgia; I48.92 Unspecified atrial flutter; F41.9 Anxiety disorder, unspecified; G70.00 Myasthenia gravis without (acute) exacerbation; E78.00 Pure hypercholesterolemia, unspecified; K21.9 Gastro-esophageal reflux disease without esophagitis; E66.9 Obesity, unspecified; Z96.653 Presence of artificial knee joint, bilateral; Z95.810 Presence of automatic (implantable) cardiac defibrillator; Z90.710 Acquired absence of both cervix and uterus; Z88.5 Allergy status to narcotic agent; Z79.899 Other long term (current) drug therapy; Z88.2 Allergy status to sulfonamides; Z88.8 Allergy status to other drugs, medicaments and biological substances; Z91.041 Radiographic dye allergy status; Z82.49 Family history of ischemic heart disease and other diseases of the circulatory system; Z80.1 Family history of malignant neoplasm of trachea, bronchus and lung; Z84.1 Family history of disorders of kidney and ureter
CPT/HCPCS: 10081

== ENCOUNTER 2019-07-07 13:22 | Inpatient (IN) | payer BC, OTHER ==
[~2019-07-07] VITALS: Ht 157.5 cm; Wt 96.6 kg
[2019-07-07 12:45] VITALS: BP 137/54; BP 137/94
[~2019-07-07 13:22] MED LIST changes: +AZATHIOPRINE50 MG PO; +COREG25 MG PO; +EFFEXOR XR75 MG PO; +ELIQUIS5 MG PO; +ENTRESTO 24 MG1 EACH PO; +LASIX 40 MG TAB40 M2 PO; +MAGNESIUM400 MG PO; +OMEPRAZOLE20 M2 PO; +PACERONE 200 M200 M1 PO; +SPIRONOLACTONE25 M1 PO
[2019-07-07 13:45] VITALS: BP 123/98; BP 128/93
--- NOTE | 2019-07-07 13:53 | NUR ---
PT ADMITTED FROM [place] FOR CV WORKUP. ARRIVED TO UNIT APPROX 1245. UPON TRANSFER TO PT BED FROM [facility] ALLOWED PT TRANSFER INDEPENDENTLY AND PT FELL. FALL UNWITNESSED BY ANY STAFF. PT REPORTS THAT SHE HIT HER HEAD ON NIGHTSTAND DURING FALL. NEURO ASSESSMENT WNL. NO NEURO BASELINE OBTAINED PRIOR TO FALL. VSS. PT'S AWARE AND CURRENTLY AT BEDSIDE. DR BURROUGHS NOTIFIED. ORDERS TO FOLLOW.
[2019-07-07 15:50] VITALS: BP 129/83
[2019-07-07 15:52] LABS: ABSOLUTE NEUTROPHILS 5.3 thou/uL (1.4-8.2); BASOPHILS 0.3 % (0.0-2.0); EOSINOPHILS 0.4 % (0.0-3.0); HEMATOCRIT 31.5 % (37.0-47.0); HEMOGLOBIN 10.8 gm/dL (12.0-15.0); LYMPHOCYTES 19.2 % (24.0-44.0); MCH 31.7 pg (26.0-34.0); MCHC 34.3 g/dL (28.0-37.0); MCV 92.4 fL (80.0-100.0); MONOCYTES 10.5 % (1.0-8.0); PLATELET COUNT 152 thou/uL (150-400); POLYS 69.6 % (36.0-66.0); RBC 3.41 mil/uL (4.20-5.00); RDW 13.6 % (10.5-14.5); WBC 7.6 thou/uL (4.0-11.0)
[2019-07-07 16:01] LABS: ALBUMIN 3.7 g/dL (3.4-5.0); CALCIUM 9.3 mg/dL (8.5-10.1); CREATININE 1.1 mg/dL (0.6-1.0); MAGNESIUM 1.6 mg/dL (1.8-2.4); POTASSIUM 3.6 mmol/L (3.5-5.1); TOTAL BILIRUBIN 0.6 mg/dL (<0.1-1.0); TOTAL PROTEIN 8.7 g/dL (6.4-8.2); TROPONIN-I 0.11 ng/mL (<0.06)
--- NOTE | 2019-07-07 16:37 | NUR ---
PT HAS ORDER FOR CT OF HEAD TO R/O POSSIBLE BLEED. PT REMAINS ALERT AND ORIENTED X4. DENIES PAIN AND SOA. VSS. HAS NOT BEEN OUT OF BED SINCE FALL. GAIT REMAINS UNASSESSED. FALL PRECAUTIONS IN PLACE. MAG TO BE REPLACED THIS SHIFT. DRs HAVE SEEN PT AND DONE BEDSIDE ASSESSMENT. LEFT BEDSIDE A MOMENT AGO. HE AND PT BOTH DENY QUESTIONS OR CONCERNS REGARDING POC. NO DISTRESS NOTED.
[2019-07-07 19:49] VITALS: BP 107/69
[2019-07-07] MEDS ORDERED: TRAZODONE HCL50 MG PO (21:07)
[2019-07-07] MEDS ORDERED: DOXYCYCLINE 10100 M1 PO (21:07)
[2019-07-07] MEDS ORDERED: WELLBUTRIN XL300 MG PO (21:08)
[2019-07-08 03:05] VITALS: BP 111/57
[2019-07-08 05:43] LABS: ANION GAP 8 mmol/L (7-16); BUN 29 mg/dL (7-18); CHLORIDE 105 mmol/L (98-107); CHOLESTEROL 137 mg/dL (<200); CO2 28 mmol/L (21-32); CREATININE 1.2 mg/dL (0.6-1.0); GLUCOSE 72 mg/dL (74-106); HDL CHOLESTEROL 50 mg/dL (>40); LDL CHOLESTEROL 54 mg/dL (<100); POTASSIUM 3.3 mmol/L (3.5-5.1); SODIUM 141 mmol/L (136-145); TC:HDL 2.7 Ratio (Not establshd); TRIGLYCERIDE 165 mg/dL (<150); VLDL 33 mg/dL (<40)
[2019-07-08 05:46] LABS: SERUM ASSESSMENT Clear
--- NOTE | 2019-07-08 05:58 | NUR ---
ASSUME CAR E1900. PT/VITALS STABLE. DENIES ANY PAIN. UP WITH ASSISTANCE TO BATHROOM DUE TO WEAKNESS. PROGRESSING MODERATELY TO PLAN OF CARE. ASSESSMENT CHARTED. PLNA IS TO CONTINUE DIURESING FOR CHF TX. WILL CONTINUE TO MONITRO AND FOLLOW WITH POC.
--- NOTE | 2019-07-08 07:00 | NUR ---
OCCUPATIONAL THERAPY ORDER RECEIVED WITH CANCELLATION ORDER RECEIVED IMMEDIATELY AFTER.
[2019-07-08 07:55] VITALS: BP 134/74
[2019-07-08 11:45] VITALS: BP 96/71
--- NOTE | 2019-07-08 16:07 | NUR ---
Chart reviewed and case discussed with the care team. Therapy evals requested. Pt fell yesterday and utlizes a rwalker at home. She has had a hh referral to the [facility] after her last visit, but was a non admit for refusal of services. [facility] is agreeable to accept a new referral if needed at ca. They do provide service for the [facility] and they can accept her insurance plan. If the pt is dc ready over the weekend and the care team is recommending hh f/u for nursing or therapy, please fax her dc summary and instructions to [phone] and call their oncall nurse at [phone].
--- NOTE | 2019-07-08 18:04 | NUR ---
ASSUMED PT CARE AT 0700. PT A&O X4. ASSESSMENT CHARTED. PT STATED SHE DID NOT HAVE PAIN TODAY. FALL PRECAUTIONS IN PLACE. PT GOT UP TO COMMODE TODAY WITH 1-2 PERSON ASSIST. PT DENIED DIZZINESS WHEN GETTING UP. PT WAS STABLE WHEN GETTING UP TO THE COMMODE. PT HAD A BOWEL MOVEMENT. PT'S LEFT UPPER ARM IV BECAME INFILTRATED, NEW IV INSERTED BY IV TEAM IN R UPPER ARM. R UPPER ARM IV IN CLEAN, DRY, AND INTACT. PT'S VITAL SIGNS ARE STABLE. PT DENIED CHEST PAIN. PT CONTINUED POC FOR DIURESING. PT CONTINUES TO HAVE CRACKLES IN LUNGS. PT RECIEVED PRN MAGNISUM PER PROTOCOL FOR DECREASED MG.
[2019-07-08 20:19] VITALS: BP 121/72
[2019-07-09 04:42] VITALS: BP 110/97
--- NOTE | 2019-07-09 05:25 | NUR ---
ASSUME CARE 1900. PT/VITALS STABLE. DENIES ANY PAIN. UP WITH ASSISTANCE TO BSC. ASSESSMENT CHARTED. PROGRESSING WELL WITH POC. PLAN IS POSSIBLE DISCHARGE TODAY. WILL CONTINUE TO MONITOR AND FOLLOW WITH POC
[2019-07-09 06:04] LABS: HEMATOCRIT 32.5 % (37.0-47.0); HEMOGLOBIN 11.4 gm/dL (12.0-15.0); MCH 31.9 pg (26.0-34.0); MCHC 35.1 g/dL (28.0-37.0); MCV 90.9 fL (80.0-100.0); RBC 3.57 mil/uL (4.20-5.00); RDW 13.8 % (10.5-14.5); WBC 4.6 thou/uL (4.0-11.0)
[2019-07-09 06:33] LABS: CALCIUM 9.5 mg/dL (8.5-10.1); CREATININE 1.2 mg/dL (0.6-1.0); MAGNESIUM 1.5 mg/dL (1.8-2.4); POTASSIUM 3.1 mmol/L (3.5-5.1)
[2019-07-09 08:00] VITALS: BP 129/85
[2019-07-09] MEDS ORDERED: LIPITOR40 MG PO (11:18)
[2019-07-09 12:05] VITALS: BP 107/71
[2019-07-09 14:23] VITALS: BP 107/71
== END 2019-07-09 15:01 | disposition home or self-care (01) | DRG 291 ==
LOC: 2N 13:22
PROVIDERS: Hospitalist; Nurse Practitioner; ADMIT Internal Medicine
DX: I13.0 Hypertensive heart and chronic kidney disease with heart failure and stage 1 through stage 4 chronic kidney disease, or unspecified chronic kidney disease (principal); I50.23 Acute on chronic systolic (congestive) heart failure; I38 Endocarditis, valve unspecified; K59.09 Other constipation; K21.9 Gastro-esophageal reflux disease without esophagitis; I42.9 Cardiomyopathy, unspecified; I25.10 Atherosclerotic heart disease of native coronary artery without angina pectoris; F32.9 Major depressive disorder, single episode, unspecified; E78.00 Pure hypercholesterolemia, unspecified; F41.9 Anxiety disorder, unspecified; E66.9 Obesity, unspecified; E11.22 Type 2 diabetes mellitus with diabetic chronic kidney disease; E78.5 Hyperlipidemia, unspecified; I48.0 Paroxysmal atrial fibrillation; N18.3 Chronic kidney disease, stage 3 (moderate); D64.9 Anemia, unspecified; G70.00 Myasthenia gravis without (acute) exacerbation; M79.7 Fibromyalgia; Z96.659 Presence of unspecified artificial knee joint; Z82.49 Family history of ischemic heart disease and other diseases of the circulatory system; Z88.2 Allergy status to sulfonamides; Z88.8 Allergy status to other drugs, medicaments and biological substances; Z88.6 Allergy status to analgesic agent; Z91.041 Radiographic dye allergy status; Z90.710 Acquired absence of both cervix and uterus; Z95.810 Presence of automatic (implantable) cardiac defibrillator; Z68.38 Body mass index [BMI] 38.0-38.9, adult
CPT/HCPCS: 10081

== ENCOUNTER 2019-08-31 19:30 | Inpatient (IN) | payer BC, OTHER ==
[~2019-08-31] VITALS: Ht 157.5 cm; Wt 92.1 kg
[~2019-08-31 19:30] MED LIST changes: +DOXYCYCLINE 10100 M1 PO; +LIPITOR40 MG PO; +TRAZODONE HCL50 MG PO; +WELLBUTRIN XL300 MG PO
[2019-08-31 21:00] VITALS: BP 120/72
[2019-08-31] MEDS ORDERED: DIAZEPAM 5 MG5 M1 PO (22:53)
[2019-08-31] MEDS ORDERED: DORYX MPC120 MG PO (22:54)
[2019-08-31] MEDS ORDERED: ELIQUIS5 MG PO (22:54)
[2019-08-31] MEDS ORDERED: ESOMEPRAZOLE MA40 MG PO (22:56)
[2019-08-31] MEDS ORDERED: FIORINAL 50-321 EACH PO (22:58)
[2019-08-31] MEDS ORDERED: MECLIZINE HCL25 M1 PO (22:59)
[2019-08-31] MEDS ORDERED: RELISTOR150 MG PO (23:01)
[2019-08-31 23:27] VITALS: BP 119/65
[2019-09-01 01:30] LABS: HEMATOCRIT 33.7 % (37.0-47.0); HEMOGLOBIN 11.3 gm/dL (12.0-15.0); MCH 31.4 pg (26.0-34.0); MCHC 33.5 g/dL (28.0-37.0); MCV 93.7 fL (80.0-100.0); RBC 3.6 mil/uL (4.20-5.00); RDW 13.9 % (10.5-14.5); WBC 7.7 thou/uL (4.0-11.0)
[2019-09-01 01:46] LABS: CALCIUM 8.8 mg/dL (8.5-10.1); CREATININE 1.2 mg/dL (0.6-1.0); POTASSIUM 3.2 mmol/L (3.5-5.1); TROPONIN-I 0.09 ng/mL (<0.06)
[2019-09-01 03:53] VITALS: BP 111/73
[2019-09-01 07:37] VITALS: BP 119/75
--- NOTE | 2019-09-01 07:49 | EKG ---
[place] [address] [facility] [place] [address] ELECTROCARDIOGRAM REPORT Name: LUCINDADAVID JARRELL Room #: 363- ADM IN M.R.#: [id number] Admission: 08/31/19 Attend Phys: Mandy Duff Discharge: Date of : 57 Report #: [id number] THIS REPORT FOR: //name// [facility] Test Date: 2019-09-01 Test Time: 00:01:01 Pat Name: DAVID JANE Department: Room: 363 Gender: F Research Technician: lópez pacheco : 1955 Requested By: Debbie Gimenez Order Number: [id number] MD: Luis Daniel Hahn Measurements Intervals [place] Rate: 88 P: 99 MD: 133 QRS: 90 QRSD: 108 T: -68 QT: 377 QTc: 457 Interpretive Statements Ventricular-paced complexes No further analysis attempted due to paced rhythm No previous ECGs available for comparison Electronically Signed On 09-01-2019 7:48:51 CDT by Luis Daniel Hahn [email or web address] <ELECTRONICALLY SIGNED> By: Luis Daniel Hahn MD, [facility] 09/01/19 0748 0001 0001 Luis Daniel Hahn MD, [facility] /EPI
[2019-09-01 11:40] VITALS: BP 97/68
[2019-09-01 15:22] VITALS: BP 118/71
[2019-09-01 19:14] VITALS: BP 117/76
[2019-09-02 01:36] LABS: CALCIUM 9.4 mg/dL (8.5-10.1); CREATININE 1.3 mg/dL (0.6-1.0); POTASSIUM 3.6 mmol/L (3.5-5.1)
[2019-09-02 03:23] VITALS: BP 91/63
[2019-09-02 08:13] VITALS: BP 115/62
[2019-09-02] MEDS ORDERED: SENNA-TIME S T1 EACH PO (09:10)
[2019-09-02] MEDS ORDERED: LASIX 40 MG TAB40 M2 PO (09:16)
[2019-09-02 09:20] VITALS: BP 115/62
[2019-09-02 09:29] VITALS: BP 115/62
[2019-09-02 09:38] VITALS: BP 115/62
[2019-09-02 11:46] VITALS: BP 115/62
== END 2019-09-02 15:12 | disposition home health service (06) | DRG 291 ==
LOC: 3W 19:30 → ENTRNSPT 09-02 15:05 → EDTRNSPTSTS 09-02 15:05 → 3W 09-02 15:12
PROVIDERS: Nurse Practitioner; Nurse Practitioner Family; ADMIT Hospitalist
DX: I13.0 Hypertensive heart and chronic kidney disease with heart failure and stage 1 through stage 4 chronic kidney disease, or unspecified chronic kidney disease (principal); I50.23 Acute on chronic systolic (congestive) heart failure; I42.9 Cardiomyopathy, unspecified; E78.5 Hyperlipidemia, unspecified; N18.3 Chronic kidney disease, stage 3 (moderate); G47.33 Obstructive sleep apnea (adult) (pediatric); F32.9 Major depressive disorder, single episode, unspecified; F41.9 Anxiety disorder, unspecified; K59.09 Other constipation; E78.00 Pure hypercholesterolemia, unspecified; K21.9 Gastro-esophageal reflux disease without esophagitis; Z96.652 Presence of left artificial knee joint; G70.00 Myasthenia gravis without (acute) exacerbation; D64.9 Anemia, unspecified; E66.01 Morbid (severe) obesity due to excess calories; M79.7 Fibromyalgia; Z60.2 Problems related to living alone; I48.0 Paroxysmal atrial fibrillation; Z95.2 Presence of prosthetic heart valve; Z88.2 Allergy status to sulfonamides; Z88.8 Allergy status to other drugs, medicaments and biological substances; Z88.6 Allergy status to analgesic agent; Z91.041 Radiographic dye allergy status; Z90.710 Acquired absence of both cervix and uterus; Z68.37 Body mass index [BMI] 37.0-37.9, adult; Z82.49 Family history of ischemic heart disease and other diseases of the circulatory system; Z95.810 Presence of automatic (implantable) cardiac defibrillator
CPT/HCPCS: 10879

== ENCOUNTER → 2020-04-24 | Outpatient (CLI) | payer BC, OTHER ==
[~2020-04-24] MED LIST changes: +DIAZEPAM 5 MG5 M1 PO; +DORYX MPC120 MG PO; +ESOMEPRAZOLE MA40 MG PO; +FIORINAL 50-321 EACH PO; +MECLIZINE HCL25 M1 PO; +RELISTOR150 MG PO; +SENNA-TIME S T1 EACH PO
== END ==
LOC: SJCVC 10:32
PROVIDERS: ATTEND Internal Medicine
DX: I50.22 Chronic systolic (congestive) heart failure (principal)

== ENCOUNTER → 2020-06-07 | Outpatient (CLI) | payer BC, OTHER | LOC: SJCVC 10:40 | PROVIDERS: ATTEND Internal Medicine | DX: I25.5 Ischemic cardiomyopathy (principal); I48.0 Paroxysmal atrial fibrillation; I13.0 Hypertensive heart and chronic kidney disease with heart failure and stage 1 through stage 4 chronic kidney disease, or unspecified chronic kidney disease; E11.22 Type 2 diabetes mellitus with diabetic chronic kidney disease; N18.9 Chronic kidney disease, unspecified; I50.22 Chronic systolic (congestive) heart failure; E78.5 Hyperlipidemia, unspecified; E66.9 Obesity, unspecified; Z82.49 Family history of ischemic heart disease and other diseases of the circulatory system; Z79.899 Other long term (current) drug therapy; Z87.891 Personal history of nicotine dependence ==

== ENCOUNTER → 2020-09-13 | Outpatient (CLI) | payer BC, OTHER | LOC: SJCVCIMAG 07:25 | PROVIDERS: ATTEND Internal Medicine | DX: I08.3 Combined rheumatic disorders of mitral, aortic and tricuspid valves (principal); I42.9 Cardiomyopathy, unspecified; I48.91 Unspecified atrial fibrillation; I50.9 Heart failure, unspecified ==

== ENCOUNTER → 2020-09-27 | Outpatient (CLI) | payer BC, OTHER | LOC: SJCVCIMAG 09:23 | PROVIDERS: ATTEND Internal Medicine | DX: I11.0 Hypertensive heart disease with heart failure (principal); I50.22 Chronic systolic (congestive) heart failure; I42.9 Cardiomyopathy, unspecified; Z95.0 Presence of cardiac pacemaker; Z72.0 Tobacco use ==